=== PATIENT | male | born 1990 | race Two or more races ===

== ENCOUNTER 2017-07-14 17:38 | Emergency (ER) | payer MEDICAID, OTHER ==
[~2017-07-14] VITALS: Ht 170.2 cm; Wt 81.6 kg
[2017-07-14] MEDS: SODIUM CHLORIDE 0.9% 500 ML IV ONE (18:34)
[2017-07-14] MEDS: diphenhdrAMINE HCL 50 MG/1 ML VL IV ONE (18:45)
[2017-07-14 18:59] LABS: Hematocrit 49.9 % (41.0-53.0); Hemoglobin 16.7 g/dL (13.5-17.5); Mean Corpuscular Hemoglobin 32.8 pg (28.0-32.0); Mean Corpuscular Hgb Conc. 33.5 g/dL (32.0-36.0); Mean Corpuscular Volume 97.7 fL (80.0-100.0); Mean Platelet Volume 8.1 fL (6.9-10.8); Platelet Count (auto) 353 10^3/uL (140-450); Red Cell Distribution Width 13.1 % (11.8-14.3); White Blood Cell 22.7 10^3/uL (4.4-10.8)
[2017-07-14 19:15] LABS: Metamyelocytes % 0; Myelocytes % 0; Promyelocytes % 0; Reactive Lymphocytes 0
[2017-07-14 19:19] LABS: Albumin 4.8 g/dL (3.4-5.0); Calcium 9.1 mg/dL (8.5-10.1); Potassium 3.7 mmol/L (3.5-5.1)
[2017-07-14 19:21] LABS: BUN/Creatinine Ratio 15.5
[2017-07-14 19:24] LABS: Bilirubin, Total 0.5 mg/dL (0.2-1.0); Total Protein 8.6 g/dL (6.4-8.2)
[2017-07-14 19:28] VITALS: BP 136/96
[2017-07-14 20:03] LABS: Platelet Estimate Adequate
== END 2017-07-14 19:35 | disposition home or self-care (01) ==
LOC: ER 17:43
DX: G24.02 Drug induced acute dystonia (principal); F17.210 Nicotine dependence, cigarettes, uncomplicated
CPT/HCPCS: 36415; 80053; 80320; 85007; 85027; 94761; 99284; J1200